=== PATIENT | female | born 1980 | race Caucasian/White ===

== ENCOUNTER → 2017-10-12 | Outpatient (CLI) | payer OTHER ==
[2017-10-12 16:46] LABS: MEAN CORPUSCULAR HGB CONC 33.2 g/dl (32-36); MEAN PLATELET VOLUME 9.8 fL (7.4-10.4); PLATELET COUNT 355 K/uL (130-400)
[2017-10-12 16:53] LABS: POTASSIUM 3.8 mmol/L (3.5-5.1)
[2017-10-12 16:58] LABS: PTT PATIENT 31.5 SECONDS (21.0-31.0)
[2017-10-12 17:23] LABS: BASO % 0.5 %; BASO ABS # 0.03 K/uL (0-0.2); EOS % 1.1 %; EOS ABS # 0.06 K/uL (0-0.5); HEMATOCRIT 38.8 % (37-47); HEMOGLOBIN 12.9 g/dL (12.0-16.0); LYMPH % 42.1 %; LYMPH ABS # 2.32 K/uL (1.2-3.4); MEAN CELL VOLUME 90.7 fL (80-100); MEAN CORPUSCULAR HEMOGLOBIN 30.1 pg (25-34); MONO % 4.2 %; MONO ABS # 0.23 K/uL (0.11-0.59); NEUT % 52.1 %; NEUT ABS # 2.87 K/uL (1.4-6.5); RED CELL DISTRIBUTION WIDTH CV 13.2 % (11.5-14.5); RED CELL DISTRIBUTION WIDTH SD 43.4 fL (36.4-46.3); WHITE BLOOD COUNT 5.51 K/uL (4.8-10.8)
== END | disposition home or self-care (01) ==
LOC: C.LABPBG 13:12
PROVIDERS: ATTEND Physician Assistant
DX: Z01.818 Encounter for other preprocedural examination (principal)

== ENCOUNTER → 2017-10-26 | Day surgery (SDC) | payer OTHER ==
[2017-10-16 16:34] VITALS: Ht 165.1 cm; Wt 75.0 kg
[~2017-10-26] VITALS: Ht 165.1 cm; Wt 75.0 kg
[~2017-10-26] MED LIST: ACETAMINOPHEN SUSP 160 MG/5 ML UDC PO PRN; ACETAMINOPHEN/HYDROCODONE ELIX 15 ML/CUP UDP PO PRN; ATROPINE SULFATE 0.1 MG/ML 5ML SYR IV PRN; BACITRACIN/POLYMYXIN B OINT 90 APPLN/28.4 GM TUBE EXT ONE; DEXAMETHASONE SOD INJ 4 MG/ML VIAL ONE; EpHEDrine SULFATE INJ 50 MG/ML AMP IV PRN; FENTANYL CITRATE INJ 50 MCG/1 ML 2 ML VIAL IV PRN; FENTANYL CITRATE INJ 50 MCG/1 ML 2 ML VIAL ONE; HYDROmorphone INJ 1 MG/ML SYR IV PRN; LACTATED RINGER'S 1000ML 1,000 ML IV SCH; LIDOCAINE 2% JELLY 5 ML TUBE ONE; LIDOCAINE HCL 2% 2 ML VIAL (20MG/ML) ONE; MIDAZOLAM HCL 1 MG/ML 2ML VIAL ONE; ONDANSETRON INJ 2 MG/ML 2 ML VIAL IV PRN; ONDANSETRON INJ 2 MG/ML 2 ML VIAL ONE; PHENYLEPHRINE 100MCG/ML 5ML SYR IV PRN; PROMETHAZINE HCL INJ 12.5 MG in SODIUM CHLORIDE 0.9% 50ML 50 ML IV PRN; PROPOFOL IV EMULSION 10 MG/ML 20 ML VIAL ONE; ROCURONIUM BROMIDE 10 MG/ML 5 ML VIAL ONE
--- NOTE | 2017-10-26 10:27 | History & Physical Bridge - [place] ---
H&P Re-Evaluation Bridge Note: I have examined the patient, reviewed the History & Physical and in the interval since the performance of the History & Physical I have noted the following changes of clinical significance: No changes noted
--- NOTE | 2017-10-26 11:36 | [facility] Operative Report ---
Operative Report Operative Date Oct 26, 2017. Pre-Operative Diagnosis Chronic Tonsillitis Post-Operative Diagnosis same Procedure(s) Performed Tonsillectomy Surgeon Dr. Luis Calderón Ball Maker Surgeon(s) 0 Estimated Blood Loss 0 Findings 1-2+ CRYPTIC ENDOPHYTIC TONSILS WITH EXCESSIVE TONSILLITH FORMATION Specimens A. Right Tonsil B. Left Tonsil Anesthesia Type General I attest to the content of the Intraoperative Record and any orders documented therein. Any exceptions are noted below.
--- NOTE | 2017-10-26 12:20 | Anesthesia Progress Nt - [facility] ---
Anesthesia Post Op Note Date & Time Oct 26, 2017 at 12:19 Vital Signs Pain Intensity: 4 Vital Signs Past 12 Hours Date Time Temp Pulse Resp B/P (MAP) Pulse Ox O2 Delivery O2 Flow Rate FiO2 10/26/17 12:18 37.2 56 16 110/77 99 Room Air 10/26/17 12:13 58 15 10/26/17 12:13 56 15 99 10/26/17 12:11 113/76 10/26/17 12:08 64 17 10/26/17 12:08 65 17 98 10/26/17 12:06 119/77 10/26/17 12:03 62 19 10/26/17 12:03 61 19 99 10/26/17 12:01 112/79 10/26/17 11:58 59 18 100 10/26/17 11:58 59 18 10/26/17 11:56 113/77 10/26/17 11:53 64 15 10/26/17 11:53 62 15 100 10/26/17 11:52 104/78 10/26/17 11:51 68 14 10/26/17 11:51 69 14 100 10/26/17 11:48 116/79 10/26/17 11:47 36.8 78 16 116/79 100 Humidified Oxygen 5 Mask 10/26/17 09:25 36.5 81 16 115/79 (91) 99 Room Air Notes Mental Status: alert / awake / arousable, participated in evaluation Pt Amnestic to Procedure: Yes Nausea / Vomiting: adequately controlled Pain: adequately controlled Airway Patency, RR, SpO2: stable & adequate BP & HR: stable & adequate Hydration State: stable & adequate Anesthetic Complications: no major complications apparent
[2017-10-26 12:26] VITALS: TEMP 36.8
--- NOTE | 2017-10-26 12:44 | OPERATIVE REPORT ---
DATE OF OPERATION: 10/26/2017 PREOPERATIVE DIAGNOSIS: Chronic tonsillitis. POSTOPERATIVE DIAGNOSIS: Chronic tonsillitis. PROCEDURE: Bilateral tonsillectomy. SURGEON: Jose Calderón MD ANESTHESIA: General endotracheal. ESTIMATED BLOOD LOSS: Zero. FINDINGS: 1-2+ cryptic endophytic tonsils bilaterally with excessive tonsillith formation. SPECIMENS: Right and left tonsil sent separately for permanent pathological assessment. COMPLICATIONS: None. INDICATIONS FOR THE PROCEDURE: The patient is a 37-year-old female with the above-mentioned history who presents for the above-mentioned procedure on an outpatient elective basis. DETAILS OF PROCEDURE: After informed consent had been obtained from the patient, the patient was wheeled to the operating room and placed on the operating room table in the supine position. Monitors were placed. After induction of general endotracheal anesthesia, the table was turned 90 degrees and the patient's head and neck were gently extended. Antibiotic ointment was applied to the lips and a mouth gag was carefully inserted, opened, and stabilized on a roll of towels. The palate was inspected and was found to be normal. An Allis clamp was then used to grasp the right tonsil in the superior pole and Bovie electrocautery was used to remove the tonsil in the capsular plane with care to preserve the underlying mucosa and musculature of the anterior and posterior tonsillar pillars. The left tonsil was then removed in a similar fashion. Intraoperative findings were of 1-2+ cryptic endophytic tonsils bilaterally with extensive tonsillith formation. The tonsils were sent separately for permanent pathological assessment. The mouth gag was released for 1 minute. This was reopened and hemostasis was confirmed. The oral cavity and oropharynx were irrigated and suctioned. An orogastric tube was placed and the stomach was suctioned free of air and stomach contents. 2% lidocaine jelly was placed in the bilateral tonsillar fossae for added anesthetic effect. This marked the end of the case. The patient tolerated the procedure well and there were no apparent complications. The patient was extubated and transferred to recovery room in stable condition. I attest to the content of the Intraoperative Record and any orders documented therein. Any exception s are noted below.
[2017-10-26 12:51] VITALS: BP 123/87; PULSE 53; O2SAT 99
== END | disposition home or self-care (01) ==
LOC: X.SURG 08:45
DX: J35.8 Other chronic diseases of tonsils and adenoids (principal); Z87.891 Personal history of nicotine dependence

== ENCOUNTER → 2017-11-12 | Outpatient (CLI) | payer OTHER ==
[2017-11-12 16:14] LABS: BLOOD UREA NITROGEN 11 mg/dl (7-18); CREATININE 0.74 mg/dl (0.60-1.20); GLUCOSE 80 mg/dl (70-99)
[2017-11-12 16:15] LABS: CALCIUM 8.7 mg/dl (8.5-10.1); CARBON DIOXIDE 22 mmol/L (21-32); CHOLESTEROL 206 mg/dl (0-200); LDL CHOLESTEROL CALCULATED 144 mg/dl; POTASSIUM 4.2 mmol/L (3.5-5.1); SODIUM 138 mmol/L (136-145)
== END | disposition home or self-care (01) ==
LOC: C.LABPBG 10:35
PROVIDERS: ATTEND Family Medicine
DX: Z00.00 Encounter for general adult medical examination without abnormal findings (principal); R30.0 Dysuria; R53.83 Other fatigue; Z13.220 Encounter for screening for lipoid disorders